=== PATIENT | male | born 1950 | race Caucasian/White ===

== ENCOUNTER 2017-11-25 06:47 | Day surgery (SDC) | payer MEDICARE, BC ==
[2017-11-25] MEDS ORDERED: PROPOFOL 500 MG/50 ML EMU IV ONE (07:54)
[2017-11-25 08:51] VITALS: TEMP 99
[2017-11-25 09:32] VITALS: BP 114/60; PULSE 82; RESP 20; O2SAT 98
== END 2017-11-25 10:10 | disposition home or self-care (01) | DRG 951 ==
LOC: SURG 06:47
PROVIDERS: ATTEND Internal Medicine Gastroenterology
DX: Z12.11 Encounter for screening for malignant neoplasm of colon (principal); K57.32 Diverticulitis of large intestine without perforation or abscess without bleeding; Z86.010 Personal history of colon polyps; Z80.0 Family history of malignant neoplasm of digestive organs; K64.8 Other hemorrhoids; D12.2 Benign neoplasm of ascending colon
CPT/HCPCS: J2704